=== PATIENT | male | born 1965 | race African-American/Black ===

== ENCOUNTER 2025-02-09 12:50 | Emergency (ER) | payer OTHER ==
[~2025-02-09] VITALS: Ht 170.2 cm; Wt 112.0 kg
[2025-02-09 13:54] VITALS: O2SAT 100
[2025-02-09] MEDS: KETOROLAC 30MG/ML VIAL IM ONE (14:59)
[2025-02-09] MEDS: LIDOCAINE 5% PATCH TOP SCH (15:01)
[2025-02-09] MEDS ORDERED: LIDO-53 TP (15:52)
[2025-02-09] MEDS ORDERED: ACET-2708 MT (15:52)
[2025-02-09 16:08] VITALS: BP 140/96; PULSE 71; RESP 16; TEMP 36.7; O2SAT 100
== END 2025-02-09 16:09 | disposition home or self-care (01) ==
LOC: ER 13:22
DX: M54.9 Dorsalgia, unspecified (principal)
CPT/HCPCS: 99283; 71045; 96372; J1885